=== PATIENT | male | born 1950 | race African-American/Black ===

== ENCOUNTER 2016-11-22 22:37 | Emergency (ER) | payer MEDICARE, OTHER ==
[~2016-11-22] VITALS: Ht 185.4 cm; Wt 77.1 kg
--- NOTE | 2016-11-22 22:24 | Emergency Room Report ---
History of Present Illness General Source: Patient Present Illness HPI 66yom BIBEMS with bleeding AV fistula left side Recently had "new graft" Finished HD, went home, took bandage off and had arterial bleed, spurting at home Placed pressure, dressing and bleeding stopped Has happened before - went to [facility], [place], operated by [facility] seen "for 18 hours" so went to [facility] and "by then bleeding stopped." History of CKD on HD. No HTN, DM On ASA Stopped Coumadin 1 month ago Allergies: Coded Allergies: BENAZEPRIL (Unverified Allergy, Unknown, 11/22/16) ENALAPRILAT (Unverified Allergy, Unknown, 11/22/16) Patient History Past Medical History: renal disease Past Surgical History: none Pertinent Family History: none Immunizations: UTD Review of Systems All Other Systems: negative except mentioned in HPI Physical Exam Sp02 EP Interpretation: reviewed, normal General Appearance: normal inspection, well appearing, no apparent distress, alert Head: atraumatic ENT: normal ENT inspection, hearing grossly normal, normal voice Neck: normal inspection, full range of motion, supple, no bony tend Respiratory: normal inspection, lungs clear, normal breath sounds, no respiratory distress, no retraction, no wheezing Cardiovascular #1: regular rate, rhythm, no edema Gastrointestinal: normal inspection, normal bowel sounds, non tender, soft, no guarding, no hernia Genitourinary: no CVA tenderness Musculoskeletal: other - Left upper extremity: Palpable thrill over HD site. No active arterial bleed. Clot noted. Neurologic: normal inspection, alert, oriented x3, responsive, security coordinator III-XII nml as tested, motor strength/tone normal, speech normal Psychiatric: normal inspection, judgement/insight normal, mood/affect normal Skin: normal inspection, normal color, no rash Procedures Laceration/Wound Repair Laceration/Wound Repair : Consent: Emergent Wound Location: upper extremity Wound's Depth, Shape: superficial Wound Explored: clean Betadine Prep?: No Wound Repaired With: Dermabond Layer Closure?: No Sterile Dressing Applied?: Yes Splint Applied?: No Sling Applied?: No Patient Tolerated: Well Complications: None Progress AV fistula site Arterial site with clot formed No active bleeding Dermabond placed over site Secure bandage placed No additional bleeding noted Medical Decision Making Diagnostic Impression: Primary Impression: Hemorrhage of arteriovenous fistula Qualified Codes: T82.838A - Hemorrhage due to vascular prosthetic devices, implants and grafts, initial encounter ER Course Stopped prior to ED evaluation Dermabond placed on clot No additional bleeding Vitals stable Bandage placed, DC home Advised Renal followup Return for worsening bleeding Status: improved Disposition: HOME, SELF-CARE GENTRY LLOYD M.D. Nov 22, 2016 22:24
[2016-11-22 22:45] VITALS: BP 110/68
[2016-11-23 00:15] VITALS: BP 112/69
[2016-11-23 00:20] VITALS: BP 110/68
== END 2016-11-23 00:20 | disposition home or self-care (01) ==
LOC: EDBD 22:37 → EMR 22:50
DX: T82.838A Hemorrhage due to vascular prosthetic devices, implants and grafts, initial encounter (principal); Y83.2 Surgical operation with anastomosis, bypass or graft as the cause of abnormal reaction of the patient, or of later complication, without mention of misadventure at the time of the procedure; Y92.019 Unspecified place in single-family (private) house as the place of occurrence of the external cause; I12.0 Hypertensive chronic kidney disease with stage 5 chronic kidney disease or end stage renal disease; N18.6 End stage renal disease; Z99.2 Dependence on renal dialysis; E11.9 Type 2 diabetes mellitus without complications; Z88.8 Allergy status to other drugs, medicaments and biological substances